=== PATIENT | female | born 1955 | race Caucasian/White ===

== ENCOUNTER 2020-07-25 19:37 | Emergency (ER) | payer OTHER ==
[~2020-07-25] VITALS: Ht 157.5 cm; Wt 86.2 kg
[2020-07-25 19:41] VITALS: Ht 157.5 cm; Wt 86.2 kg
[2020-07-25 20:58] VITALS: BP 147/66
== END 2020-07-25 20:58 | disposition home or self-care (01) ==
LOC: ED 19:37
DX: S76.911A Strain of unspecified muscles, fascia and tendons at thigh level, right thigh, initial encounter (principal); S49.92XA Unspecified injury of left shoulder and upper arm, initial encounter; M53.3 Sacrococcygeal disorders, not elsewhere classified; W18.2XXA Fall in (into) shower or empty bathtub, initial encounter; Y93.E1 Activity, personal bathing and showering; Y92.89 Other specified places as the place of occurrence of the external cause; Y99.8 Other external cause status